=== PATIENT | female | born 1955 | race Caucasian/White ===

== ENCOUNTER 2017-02-26 11:50 | Day surgery (SDC) | payer BC ==
[~2017-02-26 11:50] MED LIST: Lactated Ringers 1,000 ML IV SCH; Midazolam 1 MG/ML 2 ML SDV ONE; Propofol 200 MG/20 ML SDV ONE; Sodium Chloride 0.9% 10 ML Syringe FLUSH PRN; fentaNYL 250 MCG/5 ML SDV ONE
[2017-02-26] MEDS ORDERED: fentaNYL 100 MCG/2 ML SDV ONE ×2 (13:27→13:30)
[2017-02-26] MEDS ORDERED: Propofol 200 MG/20 ML SDV ONE ×2 (13:27→13:30)
[2017-02-26] MEDS ORDERED: Midazolam 1 MG/ML 2 ML SDV ONE ×2 (13:27→13:30)
--- NOTE | 2017-02-26 13:32 | PCM.PN ---
- General Info Date of Service: 02/26/17 - Review of Systems Systems Review Comment:: 61-year-old female referred by Bria Brito for her initial screening colonoscopy. She denies any recent change in bowel habits. She denies any known family history of colon cancer. She is medically stable to proceed today with no significant change in her health status since her recent exam. I discussed the proposed colonoscopy with the patient. Risks reviewed included but were not limited to bleeding and GI injury. She appears to understand and agrees to proceed. - Patient Data Vitals - most recent: Last Vital Signs Temp 97.6 F 02/26/17 12:27 Pulse 79 02/26/17 12:27 Resp 20 02/26/17 12:27 BP 136/60 02/26/17 12:27 Pulse Ox 99 02/26/17 12:27 Weight - most recent: 49.442 kg Med Orders - Current: Current Medications Lactated Ringer's (Ringers, Lactated) 1,000 mls @ 125 mls/hr IV ASDIRECTED SCOTT Last Admin: 02/26/17 12:26 Dose: 125 mls/hr Sodium Chloride (Saline Flush) 10 ml FLUSH ASDIRECTED PRN PRN Reason: Keep Vein Open Discontinued Medications Fentanyl (Sublimaze) Confirm Administered Dose 250 mcg .ROUTE .STK-MED ONE Stop: 02/26/17 07:39 Fentanyl (Sublimaze) Confirm Administered Dose 100 mcg .ROUTE .STK-MED ONE Stop: 02/26/17 13:28 Midazolam HCl (Versed 1 Mg/Ml) Confirm Administered Dose 2 mg .ROUTE .STK-MED ONE Stop: 02/26/17 07:39 Midazolam HCl (Versed 1 Mg/Ml) Confirm Administered Dose 2 mg .ROUTE .STK-MED ONE Stop: 02/26/17 13:28 Propofol (Diprivan 20 Ml) Confirm Administered Dose 200 mg .ROUTE .STK-MED ONE Stop: 02/26/17 07:39 Propofol (Diprivan 20 Ml) Confirm Administered Dose 200 mg .ROUTE .STK-MED ONE Stop: 02/26/17 13:28 - Problem List Review Problem List Initiated/Reviewed/Updated: Yes - Assessment Assessment:: Colon cancer screening - Plan Plan:: Colonoscopy
--- NOTE | 2017-02-26 14:00 | PCM.OPNOTE ---
- General Post-Op/Procedure Note Date of Surgery/Procedure: 02/26/17 Operative Procedure(s): Colonoscopy Findings: Normal Colon Small External hemorrhoids Pre Op Diagnosis: Colon Cancer Screening Post-Op Diagnosis: Normal Colon. Small Hemorrhoids Anesthesia Technique: MAC Primary Surgeon: Adam Verma Pathology: none Output, Urine Amount: 0 EBL in mLs: 0 Complications: None Condition: Good Free Text/Narrative:: Intake & Output 02/25/17 02/26/17 02/26/17 22:59 06:59 14:59 Intake Total 600 Balance 600
--- NOTE | 2017-02-26 17:37 | OR ---
Date of Procedure: 02/26/2017 PREOPERATIVE DIAGNOSIS: Colon cancer screening. POSTOPERATIVE DIAGNOSES: Normal colon, external hemorrhoids. OPERATION PERFORMED: Colonoscopy. INDICATIONS FOR SURGERY: This 61-year-old female was referred for her initial screening colonoscopy. She denies any recent change in bowel habits or family history of colon cancer. FINDINGS: The patient's colon appears normal. No polyps or other abnormalities were seen on the colon mucosa. She does have some small external hemorrhoids. PROCEDURE IN DETAIL: The patient was taken to the operating room. She was given intravenous sedation, and with her in the left lateral decubitus position digital rectal exam was performed, showing no rectal masses. The Olympus colonoscope was inserted into the rectum. Retroflexed examination of the rectal canal was performed. The scope was then carefully advanced under direct visualization through the entire length of the colon until the cecum was reached. Cecal acquisition was confirmed by noting the normal internal cecal anatomy including the appendiceal orifice and ileocecal valve. The light was also noted to transilluminate the abdominal wall in the right lower quadrant. After examining the cecum, the scope was slowly withdrawn sequentially re- examining the colonic segments until the entire colon and rectum had been fully examined. The scope was then removed and the patient was taken from the operating room in satisfactory condition. ESTIMATED BLOOD LOSS: Zero. COMPLICATIONS: None. PROGNOSIS: Good. LANA Verma MD /[id number]
[2017-02-26 18:47] VITALS: BP 98/59
== END 2017-02-26 15:05 | disposition home or self-care (01) ==
LOC: LL.SDS 11:50
PROVIDERS: ATTEND Surgery
DX: Z12.11 Encounter for screening for malignant neoplasm of colon (principal); K64.4 Residual hemorrhoidal skin tags; I10 Essential (primary) hypertension; E78.5 Hyperlipidemia, unspecified; Z79.899 Other long term (current) drug therapy
CPT/HCPCS: 45378; J7120; J2250; J2704; J3010

== ENCOUNTER 2018-08-07 17:50 | Emergency (ER) | payer BC ==
[2018-08-07] MEDS ORDERED: Metoprolol Tartrate 25 MG Tab PO ONE (18:42)
[2018-08-07 19:10] LABS: CHLORIDE,CL 104 mmol/L (98-107); SODIUM,NA 143 mmol/L (136-145)
--- NOTE | 2018-08-07 19:47 | EDM.PDOC ---
ED HPI GENERAL MEDICAL PROBLEM - General Chief Complaint: Cardiovascular Problem Stated Complaint: HTN Time Seen by Provider: 08/07/18 18:00 Source of Information: Reports: Patient History Limitations: Reports: No Limitations - History of Present Illness INITIAL COMMENTS - FREE TEXT/NARRATIVE: Patient patient is a 63-year-old female who presented to the ER with her with chief complaining high blood pressure tachycardia headache and blurry vision is all started earlier today. Onset: Sudden Duration: Hour(s):, Getting Worse Location: Reports: Chest Severity: Mild Improves with: Reports: None Worsens with: Reports: None Associated Symptoms: Denies: Chest Pain, Cough Headache Pain Score (Numeric/FACES): 4 - Related Data Allergies Allergy/AdvReac Type Severity Reaction Status Date / Time No Known Allergies Allergy Verified 08/07/18 18:37 Home Meds: Home Meds Ascorbic Acid [Vitamin C] 125 mg PO BID 02/26/17 [History] Calcium Carbonate/Vitamin D3 [Calcium 500 + Vit D 400] 1 - 2 tab PO DAILY [History] Metoprolol Succinate 50 mg PO BEDTIME 02/26/17 [History] Aspirin 81 mg PO DAILY 08/07/18 [History] Non-Formulary Medication [NF Drug] 1 cap PO DAILY 08/07/18 [History] Simvastatin 20 mg PO DAILY 08/07/18 [History] buPROPion HCl [Wellbutrin Xl] 150 mg PO DAILY 08/07/18 [History] Past Medical History HEENT History: Reports: Hard of Hearing Other HEENT History: hars of hearing right ear. No hearing aide Cardiovascular History: Reports: High Cholesterol, Hypertension Respiratory History: Reports: None Gastrointestinal History: Reports: Cholelithiasis Genitourinary History: Reports: None Musculoskeletal History: Reports: None Neurological History: Reports: None Psychiatric History: Reports: Anxiety Hematologic History: Reports: None Immunologic History: Reports: None Oncologic (Cancer) History: Reports: None Dermatologic History: Reports: None - Past Surgical History GI Surgical History: Reports: Appendectomy, Cholecystectomy, EGD Social & Family History - Tobacco Use Smoking Status *Q: Never Smoker Second Hand Smoke Exposure: No - Caffeine Use Caffeine Use: Reports: Coffee - Recreational Drug Use Recreational Drug Use: No ED ROS GENERAL - Review of Systems Review Of Systems: See Below Constitutional: Reports: No Symptoms HEENT: Reports: No Symptoms Respiratory: Reports: No Symptoms Cardiovascular: Reports: No Symptoms Endocrine: Reports: No Symptoms GI/Abdominal: Reports: No Symptoms : Reports: No Symptoms Musculoskeletal: Reports: No Symptoms Skin: Reports: No Symptoms Neurological: Reports: No Symptoms Psychiatric: Reports: No Symptoms ED EXAM, GENERAL - Physical Exam Exam: See Below Exam Limited By: No Limitations General Appearance: Alert, WD/WN, No Apparent Distress Ears: Normal External Exam, Normal Canal, Hearing Grossly Normal, Normal TMs Ear Exam: Bilateral Ear: Auricle Normal, Canal Normal, TM normal Nose: Normal Inspection, Normal Mucosa, No Blood Throat/Mouth: Normal Inspection, Normal Lips, Normal Teeth, Normal Gums, Normal Oropharynx, Normal Voice, No Airway Compromise Head: Atraumatic Neck: Normal Inspection, Supple, Non-Tender, Full Range of Motion Respiratory/Chest: No Respiratory Distress, Lungs Clear, Normal Breath Sounds, No Accessory Muscle Use, Chest Non-Tender Cardiovascular: Normal Peripheral Pulses, Regular Rate, Rhythm, No Edema, No Gallop, Tachycardia GI/Abdominal: Normal Bowel Sounds (Female) Exam: Deferred Rectal (Female) Exam: Deferred Back Exam: Normal Inspection, Full Range of Motion, NT Extremities: Normal Inspection, Normal Range of Motion, Non-Tender, Normal Capillary Refill, No Pedal Edema Course - Vital Signs Last Recorded V/S: Last Vital Signs Temp 97.3 F 08/07/18 17:56 Pulse 102 H 08/07/18 18:48 Resp 16 08/07/18 18:40 BP 151/71 H 08/07/18 18:48 Pulse Ox 95 08/07/18 18:40 - Orders/Labs/Meds Orders: Active Orders 24 hr Category Date Time Status EKG Documentation Completion [RC] ASDIRECTED Care 08/07/18 18:39 Active Chest 2V [CR] Stat Exams 08/07/18 18:43 Taken Labs: Laboratory Tests 08/07/18 08/07/18 Range/Units 18:50 18:50 WBC 9.0 (4.0-10.2) K/uL RBC 4.12 (3.77-5.09) M/uL Hgb 13.1 (11.7-15.5) g/dL Hct 38.1 (34.0-46.0) % MCV 92.5 (84.0-98.0) fL MCH 31.8 (28.2-33.3) pg MCHC 34.4 (31.7-36.0) g/dL RDW 12.9 (11.2-14.1) % Plt Count 313 D (150-350) K/uL Neut % (Auto) 70.2 (45.0-80.0) % Lymph % (Auto) 21.8 (10.0-50.0) % [place] % (Auto) 6.5 (2.0-14.0) % Eos % (Auto) 1.1 (0.0-5.0) % Baso % (Auto) 0.4 (0.0-2.0) % Neut # (Auto) 6.34 (1.40-7.00) K/uL Lymph # (Auto) 1.97 (0.50-3.50) K/uL Troup # (Auto) 0.59 (0.00-1.00) K/uL Eos # (Auto) 0.10 (0.00-0.50) K/uL Baso # (Auto) 0.04 (0.00-0.20) K/uL Sodium 143 (136-145) mmol/L Potassium 3.7 (3.5-5.1) mmol/L Chloride 104 (98-107) mmol/L Carbon Dioxide 27.8 (21.0-32.0) mmol/L BUN 13 (7-18) mg/dL Creatinine 0.85 (0.51-1.17) mg/dL Est Cr Clr Drug Dosing 49.92 mL/min Estimated GFR (MDRD) > 60 mL/min Glucose 98 (74-106) mg/dL Calcium 10.2 H (8.5-10.1) mg/dL Meds: Medications Discontinued Medications Generic Name Dose Route Start Last Admin Trade Name Freq PRN Reason Stop Dose Admin Metoprolol Tartrate 25 mg 08/07/18 18:42 08/07/18 18:48 Lopressor PO 08/07/18 18:43 25 mg ONETIME ONE Administration Departure - Departure Time of Disposition: 19:51 Disposition: Home, Self-Care 01 Condition: Good Clinical Impression: Hypertensive heart disease, Tachycardia Instructions: How to Take Your Blood Pressure, [id number] Referrals: Bria Brito PA [Primary Care Provider] - Care Plan Goals: Patient is to take a whole Toprol daily stay hydrated and follow-up with primary as needed - My Orders Last 24 Hours: My Active Orders 08/07/18 18:39 EKG Documentation Completion [RC] ASDIRECTED 08/07/18 18:43 Chest 2V [CR] Stat - Assessment/Plan Last 24 Hours: My Active Orders 08/07/18 18:39 EKG Documentation Completion [RC] ASDIRECTED 08/07/18 18:43 Chest 2V [CR] Stat
[2018-08-07 21:08] VITALS: BP 153/69
== END 2018-08-07 20:15 | disposition home or self-care (01) ==
LOC: LL.ED 17:50
DX: I11.9 Hypertensive heart disease without heart failure (principal); E78.00 Pure hypercholesterolemia, unspecified; Z79.82 Long term (current) use of aspirin; Z79.899 Other long term (current) drug therapy
CPT/HCPCS: 36415; 71046; 80048; 85025; 93005; 99284; A9270-GY